=== PATIENT | male | born 1950 | race Caucasian/White ===

== ENCOUNTER 2016-07-23 19:10 | Emergency (ER) | payer OTHER ==
[~2016-07-23] VITALS: Ht 165.1 cm; Wt 89.5 kg
[~2016-07-23 19:10] MED LIST: IBUPROFEN PO
[2016-07-23 19:53] VITALS: Ht 165.1 cm; Wt 89.5 kg
[2016-07-23] MEDS ORDERED: SODIUM CHLORIDE 0.9% 1L BAG IV* STA (21:31)
[2016-07-23] MEDS ORDERED: ACETAMINOPHEN 325 MG TAB PO STA (21:31)
--- NOTE | 2016-07-23 21:38 | ERD ---
ER Documentation Chief Complaint Date/Time DATE: 07/23/16 TIME: 21:36 Chief Complaint FELT CHILLS TODAY AT 3PM. DENIES C/P SOB HPI 66-year-old male with a history of right-sided knee arthritis, presents the emergency department complaining of feeling chills which started at 3 PM today. Patient states he took 400 mg of ibuprofen at 4:00 today but did not experience improvement of symptoms. Patient denies any associated symptoms including nausea, vomiting, diarrhea, abdominal pain, headache, chest pain, shortness of breath, lower leg swelling, joint pain, oliguria, dysuria, hematuria. Patient denies any blood in his stool or dark colored stools recently. ROS All systems reviewed and are negative except as per history of present illness. Medications Home Meds Active Scripts Naproxen* (Naprosyn*) 500 Mg Tablet, 500 MG PO BID Y for PAIN AND/OR INFLAMMATION, #30 TAB TAKE WITH FOOD. DO NOT TAKE MORE IBUPROFEN WITH THIS MED Prov:DAI VICTOR PA-C 07/24/16 Reported Medications [Ibuprofen] No Conflict Check, 400 MG PO 08/11/15 Allergies Allergies: Coded Allergies: No Known Allergy (Unverified , 07/23/16) PMhx/Soc History of Surgery: Yes (LEFT TOTAL HIP REPLACEMENT, RIGHT TOTAL KNEE REPLACEMENT) Anesthesia Reaction: No Hx Neurological Disorder: No Hx Respiratory Disorders: Yes (PNEUMONIA LAST WEEK) Hx Cardiac Disorders: No Hx Psychiatric Problems: No Hx Miscellaneous Medical Probl: No Hx Alcohol Use: No Hx Substance Use: No Hx Tobacco Use: No Smoking Status: Never smoker Physical Exam Vitals Vital Signs Date Time Temp Pulse Resp B/P Pulse Ox O2 Delivery O2 Flow Rate FiO2 07/24/16 00:19 97.5 83 18 139/78 99 Room Air 07/23/16 19:53 101.8 110 18 138/75 95 Physical Exam Const: Well-developed, well-nourished, no acute distress Head: Atraumatic Eyes: Normal Conjunctiva ENT: Normal External Ears, Nose and Mouth. Oropharynx clear without evidence of tonsillar swelling bilaterally. Tympanic membranes nonerythematous , non-swollen. Neck: Full range of motion..~ No meningismus. Resp: Clear to auscultation bilaterally, no wheezes, rhonchi, rales Cardio: Regular rate and rhythm, no murmurs Abd: Soft, non tender, non distended. Normal bowel sounds Skin: No petechiae or rashes Back: No midline or flank tenderness Ext: No cyanosis, or edema Neur: Awake and alert Psych: Normal Mood and Affect Result Diagram: 07/23/16222907/23/162229 Results 24 hrs Laboratory Tests Test 07/23/16 11:50 07/23/16 20:31 07/23/16 22:30 Lactic Acid Level 0.7mmol/L 1.2mmol/L Urine Color LT. YELLOW Urine Clarity CLEAR Urine pH 5.5 Urine Specific Gilman 1.010 Urine Ketones NEGATIVE Urine Nitrite NEGATIVE Urine Bilirubin NEGATIVE Urine Urobilinogen 0.2 E.U./dL Urine Leukocyte Esterase NEGATIVE Urine Microscopic RBC 0-2/HPF Urine Microscopic WBC 0-2/HPF Urine Hemoglobin TRACE Urine Glucose NEGATIVE% Urine Total Protein NEGATIVE White Blood Count 7.810^3/ul Red Blood Count 4.3410^6/ul Hemoglobin 13.4g/dl Hematocrit 40.3% Mean Corpuscular Volume 92.9fl Mean Corpuscular Hemoglobin 30.9pg Mean Corpuscular Hemoglobin Concent 33.3g/dl Red Cell Distribution Width 12.0% Platelet Count 77916^3/UL Mean Platelet Volume 9.9fl Neutrophils % 78.3% Lymphocytes % 11.4% Monocytes % 9.3% Eosinophils % 0.3% Basophils % 0.4% Nucleated Red Blood Cells % 0.0/100WBC Neutrophils # 6.110^3/ul Lymphocytes # 0.910^3/ul Monocytes # 0.710^3/ul Eosinophils # 0.010^3/ul Basophils # 0.010^3/ul Nucleated Red Blood Cells # 0.010^3/ul Prothrombin Time 12.8Sec Prothrombin Time Ratio 1.0 INR International Normalized Ratio 0.96 Activated Partial Thromboplast Time 28.5Sec Sodium Level 134mmol/L Potassium Level 3.9mmol/L Chloride Level 101mmol/L Carbon Dioxide Level 27mmol/L Anion Gap 10 Blood Urea Nitrogen 18mg/dl Creatinine 0.73mg/dl Glucose Level 139mg/dl Calcium Level 9.4mg/dl Total Bilirubin 0.2mg/dl Direct Bilirubin 0.00mg/dl Indirect Bilirubin 0.2mg/dl Aspartate Amino Transf (AST/SGOT) 21IU/L Alanine Aminotransferase (ALT/SGPT) 30IU/L Alkaline Phosphatase 62IU/L Troponin I < 0.012ng/ml Total Protein 7.1g/dl Albumin 3.9g/dl Globulin 3.20g/dl Albumin/Globulin Ratio 1.21 Current Medications Medications (Trade) Dose Ordered Sig/Andrew Route PRN Reason Start Time Stop Time Status Last Admin Dose Admin Sodium Chloride (NS) 2,770 ml BOLUS OVER 2 HOURS STAT IV* 07/23/16 21:31 07/23/16 21:36 DC 07/23/16 22:53 Acetaminophen (Tylenol Tab) 650 mg ONCE STAT PO 07/23/16 21:31 07/23/16 21:36 DC Ibuprofen (Motrin) 600 mg ONCE ONCE PO 07/23/16 23:00 07/23/16 23:01 DC 07/23/16 22:58 Procedures/MDM PROCEDURE: XR Chest. CLINICAL INDICATION: Possible sepsis. TECHNIQUE: Portable AP view of the chest was obtained. COMPARISON: None. FINDINGS: The cardiomediastinal silhouette is within normal limits. The lungs are clear. There is no evidence for pleural effusion, pneumothorax or pulmonary vascular congestion. The osseous structures are intact with no evidence for acute abnormality. RPTAT:HJJR IMPRESSION: No evidence for acute intrathoracic pathology. Physician Alfonso Date Time Electronically viewed and signed by Physician Alfonso on 07/23/2016 22:29 JR/ CC: DAI VICTOR PA-C Chest X-ray 1V Interpreted by me: Soft Tissue: No acute abnormalities Bones: No acute abnormalities Mediastinum/Cardiac Silhouette/Lungs: No acute abnormalities EKG: Rate/Rhythm: Normal Sinus Rhythm QRS, ST, T-waves: No changes consistent w/ acute ischemia Impression: No evidence of ischemia or arrhythmia Upon arrival, patient was febrile at 101.8 and tachycardic. I initiated a sepsis workup and patient received IV fluid bolus of 30 mg/kg. CBC showed no evidence of systemic infection or severe anemia. CMP showed no evidence of electrolyte abnormalities, severe acidosis, alkalosis , renal failure, or liver disease. Lipase showed no evidence of acute pancreatitis. UA showed no evidence of acute infection or hematuria. Lactic acid within normal limits. Throughout ED course, patient denied any complaints of pain, nausea, vomiting, chest pain, or trouble breathing. Physical exam unremarkable for any evidence of rash, cellulitis, tenderness to palpation of his abdomen, upper respiratory infection. Patient reports improvement of symptoms posttreatment. Fever well controlled with fluids and ibuprofen. I originally ordered Tylenol to control patient's fever however he stated that he experienced an adverse reaction to Tylenol years ago which resulted in blood in his stool as well as abdominal pain. Since that time he has treated his pain and fever with Motrin without complications. At this time patient does not meet criteria to be admitted into the hospital. I discussed with the patient strict return precautions. Based on patient's history of present illness and physical examination the decision was made to discharge. The patient was re-evaluated after ED treatment and stabilizing measures, and symptoms have improved. There is no evidence of life threatening injuries or illnesses at this time. On re-examination, patient resting in no distress, stable vital signs, reports feeling better and safe for discharge with outpatient follow up with PMD in 1-2 days. Patient given return precautions. Departure Diagnosis: Primary Impression: Chills Additional Impression: Fever with chills DAI VICTOR PA-C Jul 23, 2016 21:38 DAI VICTOR PA-C Jul 23, 2016 21:38
[2016-07-23 22:18] LABS: ADD UMIC YES; URINE BILIRUBIN (Dip) NEGATIVE (NEGATIVE); URINE BLOOD (Dip) TRACE (NEGATIVE); URINE COLOR LT. YELLOW (YELLOW); URINE GLUCOSE (Dip) NEGATIVE (NEGATIVE); URINE KETONES (Dip) NEGATIVE (NEGATIVE); URINE LEUKOCYTE ESTERASE (Dip) NEGATIVE (NEGATIVE); URINE NITRITE (Dip) NEGATIVE (NEGATIVE); URINE TOTAL PROTEIN (Dip) NEGATIVE (NEGATIVE); URINE UROBILINOGEN (Dip) 0.2 E.U./dL (0.1-1.0)
--- NOTE | 2016-07-23 22:29 | RADRPT ---
PROCEDURE: XR Chest. CLINICAL INDICATION: Possible sepsis. TECHNIQUE: Portable AP view of the chest was obtained. COMPARISON: None. FINDINGS: The cardiomediastinal silhouette is within normal limits. The lungs are clear. There is no evidenc e for pleural effusion, pneumothorax or pulmonary vascular congestion. The osseous structures are i ntact with no evidence for acute abnormality. RPTAT:HJJR IMPRESSION: No evidence for acute intrathoracic pathology. Physician Alfonso Date Time Electronically viewed and signed by Physician Alfonso on 07/23/2016 22:29 JR/
[2016-07-23 22:33] LABS: URINE RBCS 0-2 /HPF (0)
[2016-07-23] MEDS ORDERED: IBUPROFEN 600 MG TAB PO ONE (23:00)
[2016-07-23 23:02] LABS: ADD SCAN DIFF NO
[2016-07-23 23:04] LABS: BASOPHILS % 0.4 % (0.0-2.0); EOSINOPHILS % 0.3 % (0.0-7.0); HEMATOCRIT 40.3 % (42.0-52.0); HEMOGLOBIN 13.4 g/dl (14.0-18.0); LYMPHOCYTES # 0.9 10^3/ul (0.8-2.9); LYMPHOCYTES % 11.4 % (15.0-51.0); MEAN CORPUSCULAR HEMOGLOBIN 30.9 pg (29.0-33.0); MEAN CORPUSCULAR HGB CONC 33.3 g/dl (32.0-37.0); MEAN CORPUSCULAR VOLUME 92.9 fl (82.0-101.0); MEAN PLATELET VOLUME 9.9 fl (7.4-10.4); MONOCYTE # 0.7 10^3/ul (0.3-0.9); MONOCYTES % 9.3 % (0.0-11.0); NEUTROPHIL # 6.1 10^3/ul (1.6-7.5); NEUTROPHILS % 78.3 % (39.0-77.0); PLATELET COUNT 170 10^3/UL (140-415); RED BLOOD COUNT 4.34 10^6/ul (4.70-6.10); WHITE BLOOD COUNT 7.8 10^3/ul (4.8-10.8)
[2016-07-23 23:14] LABS: INR 0.96; PROTIME 12.8 Sec (12.2-14.2)
[2016-07-23 23:15] LABS: PARTIAL THROMBOPLASTIN TIME 28.5 Sec (25.0-35.0)
[2016-07-23 23:17] LABS: ALANINE AMINOTRANSFERASE 30 IU/L (13-69); ALBUMIN 3.9 g/dl (3.3-4.9); ALBUMIN/GLOBULIN RATIO 1.21; ALKALINE PHOSPHATASE 62 IU/L (42-121); ANION GAP 10 (8-16); ASPARTATE AMINO TRANSFERASE 21 IU/L (15-46); BILIRUBIN,INDIRECT 0.2 mg/dl (0-1.1); BILIRUBIN,TOTAL 0.2 mg/dl (0.2-1.3); BLOOD UREA NITROGEN 18 mg/dl (7-20); CALCIUM 9.4 mg/dl (8.4-10.2); CARBON DIOXIDE 27 mmol/L (21-31); CHLORIDE 101 mmol/L (97-110); CREATININE 0.73 mg/dl (0.61-1.24); GLUCOSE 139 mg/dl (70-220); POTASSIUM 3.9 mmol/L (3.5-5.1); SODIUM 134 mmol/L (135-144); TOTAL PROTEIN 7.1 g/dl (6.1-8.1)
[2016-07-23 23:38] LABS: TROPONIN-I < 0.012 ng/ml (0.00-0.12)
[2016-07-24] MEDS ORDERED: NAPR-260 PO (00:08)
[2016-07-24 00:19] VITALS: BP 139/78; PULSE 83; RESP 18; TEMP 97.5
== END 2016-07-24 00:20 | disposition home or self-care (01) ==
LOC: FTE 19:10
DX: R50.9 Fever, unspecified (principal); Z96.642 Presence of left artificial hip joint; Z96.659 Presence of unspecified artificial knee joint
CPT/HCPCS: 71010; 80053; 81001; 83605; 84484; 85025; 85610; 85730; 87040; 87086; 93005; J7030; Z7610; 36415; 81003

== ENCOUNTER 2016-10-21 17:35 | Emergency (ER) | payer OTHER ==
[~2016-10-21] VITALS: Ht 180.3 cm; Wt 91.0 kg
[~2016-10-21 17:35] MED LIST changes: +NAPR-260 PO
[2016-10-21 17:40] VITALS: Ht 180.3 cm; Wt 91.0 kg
[2016-10-21] MEDS ORDERED: BENZ100C70 PO (18:59)
--- NOTE | 2016-10-21 19:13 | RADRPT ---
PROCEDURE: XR Chest. CLINICAL INDICATION: Cough. TECHNIQUE: PA and Lateral views of the chest were obtained. COMPARISON: 07/23/2016. FINDINGS: The cardiomediastinal silhouette is within normal limits. Right middle lobe air space disease compat ible with pneumonia in setting of cough. The lungs otherwise clear. No signs of pleural fluid or pn eumothorax are seen. The osseous structures and soft tissues are unremarkable. IMPRESSION: Right middle lobe pneumonia. RPTAT: [facility] Physician Elidia Date Time Electronically viewed and signed by Physician Elidia on 10/21/2016 19:13 RS/
[2016-10-21] MEDS ORDERED: AZIT250T94 PO (19:17)
--- NOTE | 2016-11-01 12:47 | ERA ---
ER Documentation Chief Complaint Date/Time DATE: 11/01/16 TIME: 12:45 Chief Complaint sinus congestion x 3 days HPI 66-year-old male otherwise healthy presenting with a chief complaint of sinus congestion and cough 3 days. Denies fever, chills or other symptoms. No other complaints at this time and describes no other associated manifestations. No recent travel. Nursing notes have been reviewed and are consistent with history given. ROS All systems reviewed and are negative except as per history of present illness. Medications Home Meds Active Scripts Albuterol Sulfate* (Ventolin HFA*) 18 Gm Hfa.aer.ad, 2 PUFF INHALATION Q4H, #1 INHALER Prov:KALPANA HER MD 10/26/16 Levofloxacin* (Levaquin*) 750 Mg Tablet, 750 MG PO DAILY for 5 Days, TAB Prov:KALPANA HER MD 10/26/16 Azithromycin* (Zithromax*) 250 Mg Tablet, 250 MG PO .ZPACK DIRECTED, #6 TAB TAKE 500 MG (2 TABS) THE FIRST DAY THEN 250 MG (1 TAB) DAYS 2-5 Prov:VASYL MIRAMONTES PA-C 10/21/16 Benzonatate* (Tessalon Perle*) 100 Mg Capsule, 100 MG PO Q8H Y for COUGH for 5 Days, CAP Prov:VASYL MIRAMONTES PA-C 10/21/16 Naproxen* (Naprosyn*) 500 Mg Tablet, 500 MG PO BID Y for PAIN AND/OR INFLAMMATION, #30 TAB TAKE WITH FOOD. DO NOT TAKE MORE IBUPROFEN WITH THIS MED Prov:DAI VICTOR PA-C 07/24/16 Reported Medications [Ibuprofen] No Conflict Check, 400 MG PO 08/11/15 Allergies Allergies: Coded Allergies: No Known Allergy (Unverified , 10/21/16) PMhx/Soc History of Surgery: No Anesthesia Reaction: No Hx Neurological Disorder: No Hx Respiratory Disorders: No Hx Cardiac Disorders: No Hx Psychiatric Problems: No Hx Miscellaneous Medical Probl: No Hx Alcohol Use: No Hx Substance Use: No Hx Tobacco Use: No Smoking Status: Never smoker Physical Exam Physical Exam Const: Well-appearing in no acute distress Head: Atraumatic Eyes: Normal Conjunctiva ENT: Normal External Ears, Nose and Mouth. Neck: Full range of motion..~ No meningismus. Resp: Mild rales in the lungs bilaterally. Equal chest expansion and good air movement bilaterally. Cardio: Regular rate and rhythm, no murmurs Abd: Soft, non tender, non distended. Normal bowel sounds Skin: No petechiae or rashes Back: No midline or flank tenderness Ext: No cyanosis, or edema Neur: Awake and alert Psych: Normal Mood and Affect Procedures/MDM Otherwise healthy 66-year-old male with a chief complaint of sinus congestion and cough 3 days. Cough is poorly described. Chest x-ray was ordered due to rales on physical examination. X-ray was read by the radiologist given the impression of the right middle lobe pneumonia. Patient was treated with azithromycin and Tessalon Perles. I have spoke with the patient regarding their condition and future management. They have verbally responded that they understand their status and treatment plan. The patients vitals are stable, and their current condition is appropriate for discharge. The patient will be given discharge instructions with return precautions. Departure Diagnosis: Primary Impression: Pneumonia Qualified Code: J18.1 - Pneumonia of right middle lobe due to infectious organism Additional Impression: Sinusitis Qualified Code: J01.90 - Acute sinusitis, recurrence not specified, unspecified location Condition: Stable Patient Instructions: Pneumonia (Adult) Referrals: [facility] (PCP) Additional Instructions: Follow up with your PCP within the next 1-3 days for a more thorough evaluation and a possible referral to a specialist. Return the the emergency department immediately if symptoms worsen or change. If you have any questions regarding medications, ask your pharmacist or us before you leave. If any adverse reactions occur while taking your medications, discontinue the treatment and return to the emergency department immediately. Take your medications as directed, and complete the entire course of treatment. VASYL MIRAMONTES PA-C Nov 01, 2016 12:47
== END 2016-10-21 19:23 | disposition home or self-care (01) ==
LOC: FTE 17:35
DX: J18.1 Lobar pneumonia, unspecified organism (principal); J01.90 Acute sinusitis, unspecified
CPT/HCPCS: 71020; Z7502

== ENCOUNTER 2016-10-26 13:53 | Emergency (ER) | payer OTHER ==
[~2016-10-26] VITALS: Wt 79.0 kg
[~2016-10-26 13:53] MED LIST changes: +AZIT250T94 PO; +BENZ100C70 PO
[2016-10-26] MEDS ORDERED: LEVO750T25 PO (14:17)
[2016-10-26] MEDS ORDERED: ALBU18HF INHALATION (14:17)
--- NOTE | 2016-10-26 16:42 | ERD ---
ER Documentation Chief Complaint Date/Time DATE: 10/26/16 TIME: 16:40 Chief Complaint NAUSEA AND VOMITING X 4 DAYS HPI Patient is a 66-year-old male with hypertension who presents with pneumonia. He was diagnosed with right-sided pneumonia a few days ago and was started on Zithromax. The patient has finished a course of Zithromax but was still having yellow-green sputum and therefore wanted another prescription. He is speaking in full sentences. He is in no distress. He denies any recent fevers. Upon review of old medical records this is the patient's third visit to the ER since June 2016. The patient does not currently have a primary doctor. ROS All systems reviewed and are negative except as per history of present illness. Medications Home Meds Active Scripts Albuterol Sulfate* (Ventolin HFA*) 18 Gm Hfa.aer.ad, 2 PUFF INHALATION Q4H, #1 INHALER Prov:KALPANA HER MD 10/26/16 Levofloxacin* (Levaquin*) 750 Mg Tablet, 750 MG PO DAILY for 5 Days, TAB Prov:KALPANA HER MD 10/26/16 Azithromycin* (Zithromax*) 250 Mg Tablet, 250 MG PO .ZPACK DIRECTED, #6 TAB TAKE 500 MG (2 TABS) THE FIRST DAY THEN 250 MG (1 TAB) DAYS 2-5 Prov:VASYL MIRAMONTES PA-C 10/21/16 Benzonatate* (Tessalon Perle*) 100 Mg Capsule, 100 MG PO Q8H Y for COUGH for 5 Days, CAP Prov:VASYL MIRAMONTES PA-C 10/21/16 Naproxen* (Naprosyn*) 500 Mg Tablet, 500 MG PO BID Y for PAIN AND/OR INFLAMMATION, #30 TAB TAKE WITH FOOD. DO NOT TAKE MORE IBUPROFEN WITH THIS MED Prov:DAI VICTOR PA-C 07/24/16 Reported Medications [Ibuprofen] No Conflict Check, 400 MG PO 08/11/15 Allergies Allergies: Coded Allergies: No Known Allergy (Unverified , 10/21/16) PMhx/Soc Positive for hypertension History of Surgery: No Anesthesia Reaction: No Hx Neurological Disorder: No Hx Respiratory Disorders: No Hx Cardiac Disorders: No Hx Psychiatric Problems: No Hx Miscellaneous Medical Probl: No Hx Alcohol Use: No Hx Substance Use: No Hx Tobacco Use: No Smoking Status: Never smoker FmHx Family History: No diabetes Physical Exam Vitals Vital Signs Date Time Temp Pulse Resp B/P Pulse Ox O2 Delivery O2 Flow Rate FiO2 10/26/16 13:59 98.0 115 18 150/96 99 Physical Exam Const: No acute distress Head: Atraumatic Eyes: Normal Conjunctiva ENT: Normal External Ears, Nose and Mouth. Neck: Full range of motion..~ No meningismus. Resp: Clear to auscultation bilaterally, no retractions or accessory muscle use Cardio: Regular rate and rhythm, no murmurs Abd: Soft, non tender, non distended. Normal bowel sounds Skin: No petechiae or rashes Back: No midline or flank tenderness Ext: No cyanosis, or edema Neur: Awake and alert Psych: Normal Mood and Affect Procedures/MDM Patient is a 66-year-old male with hypertension who presents with right-sided pneumonia. He is well-appearing and in no respiratory distress. The patient will be given Levaquin for persistent pneumonia as well as Ventolin. I do not believe he requires admission the hospital at this time. I believe outpatient management is appropriate. The patient can return for any worsening symptoms. I doubt pneumothorax or pulmonary embolism. Departure Diagnosis: Primary Impression: Pneumonia Pneumonia type: due to unspecified organism Laterality: unspecified laterality Lung location: unspecified part of lung Qualified Code: J18.9 - Pneumonia due to infectious organism, unspecified laterality, unspecified part of lung Condition: Fair Patient Instructions: Pneumonia (Adult) Additional Instructions: Call your primary care doctor TOMORROW for an appointment during the next 1-2 days.See the doctor sooner or return here if your condition worsens before your appointment time. KALPANA HER MD Oct 26, 2016 16:42
== END 2016-10-26 14:34 | disposition home or self-care (01) ==
LOC: E/R 13:53
DX: J18.9 Pneumonia, unspecified organism (principal); R40.2142 Coma scale, eyes open, spontaneous, at arrival to emergency department; R40.2252 Coma scale, best verbal response, oriented, at arrival to emergency department; R40.2362 Coma scale, best motor response, obeys commands, at arrival to emergency department; I10 Essential (primary) hypertension
CPT/HCPCS: 99284

== ENCOUNTER 2017-09-16 09:36 | Emergency (ER) | END 2017-09-16 11:37 | disposition home or self-care (01) ==